=== PATIENT | female | born 1990 | race Caucasian/White ===

== ENCOUNTER 2017-01-12 04:34 | Inpatient (IN) | payer OTHER ==
[~2017-01-12] VITALS: Ht 154.9 cm; Wt 64.9 kg
[~2017-01-12 04:34] MED LIST: AMOX-366 PO; CEPH-512 PO; Docusate Sodium PO; Ibuprofen PO; Oxycodone/Acetaminophen PO; PREN1TAB78 PO; PREN1TAB87 PO; RANI-323 PO
[2017-01-12] MEDS ORDERED: Lactated Ringer's 1,000 ML IV SCH (06:31)
[2017-01-12] MEDS ORDERED: Methylergonovine 0.2 mg/mL Inj IM PRN ×2 (06:35→08:55)
[2017-01-12] MEDS ORDERED: Hemorrhage Kit, Post Partum XX ONE ×2 (06:35→08:55)
[2017-01-12] MEDS ORDERED: CeFAZolin Inj 2 GM in IV Premix 1 EACH IV ONE (06:35)
[2017-01-12] MEDS ORDERED: Carboprost 250 mCg/mL Inj IM PRN ×2 (06:35→08:55)
[2017-01-12] MEDS ORDERED: Oxytocin 10 Unit/mL Inj IM PRN ×2 (06:35→08:55)
[2017-01-12] MEDS ORDERED: Sodium Citrate-Citric Acid 15 mL Solution PO SCH (06:35)
[2017-01-12 07:14] LABS: Mean Corpuscular Hemoglobin 30.7 pg (27.0-35.0); Mean Corpuscular Volume 91.6 fL (81-100)
[2017-01-12] MEDS ORDERED: Lactated Ringer's 1,000 ML IV PRN (07:26)
--- NOTE | 2017-01-12 07:26 | PCM.HPANE ---
Patient Data Date of Service: Jan 12, 2017 Surgeon Admitting Provider:Santo Girard MD Attending Provider:Santo Girard MD Primary Care Physician:Gordo Gordillo MD Other Provider:Mandy Vale Anesthesia Reason for Visit TERM TERM Ht/WT & BMI Height (Centimeters): 156 Weight (Kilograms): 64.8 Body Mass Index 27 Allergies Coded Allergies: No Known Allergies (Unverified Allergy, Unknown, 03/14/16) Diabetes History Hx Diabetes?: No MRSA MRSA: No Medications Hypertension Medication: No Home Meds Incl Beta Ara: No Active Scripts Cephalexin (Keflex)500 Mg [id number] Mg PO TID #30 CAPSULE Prov:Marco Antonio Lay MD 08/29/16 Vit W-Ca,Fe,FA(<1 mg) ( Vitamins)1 Each Tablet1 Each PO DAILY # 90 TABLET Ref 3 Prov:Brent Oconnor MD 05/26/16 Amoxicillin/Clav K 875-125 mg (Augmentin 875-125 mg)1 Each Tablet1 Tablet PO BID #14 TABLET Ref 0 Prov:Brent Oconnor MD 03/11/16 [Oxycodone/Acetaminophen] (Percocet 5-325)1 TAB TABLET No Conflict Check1-2 Tab PO Q4H PRN For Pain #30 TABLET Ref 0 Prov:Santo Girard MD 01/17/15 [Ibuprofen] (Motrin)800 MG TABLET No Conflict [id number] Mg PO Q6H PRN For Pain # 30 TABLET Ref 1 Prov:Santo Girard MD 01/17/15 [Docusate Sodium] (Colace)100 MG CAPSULE No Conflict [id number] Mg PO BID #60 CAPSULE Ref 2 Prov:Santo Girard MD 01/17/15 Reported Medications Vits W-Ca,Fe,FA(<1Mg) ( Formula)1 Each Tablet1 Each PO DAILY 01/15/15 Ranitidine HCl (Acid Metallurgical Engineering Teacher 150)150 Mg [id number] Mg PO PRN PRN For Indigestion 01/15/15 History History of ENT Problems?: No HEENT History: Positive for:: Sinus Problem Hx of Heart Problems?: No Cardiovascular History: Denies:: Congestive Heart Failure Hypertension Hx of Respiratory Problem?: Yes Respiratory History: Positive for:: Asthma Denies:: Tuberculosis Hx of GI Problems?: No Hx of Problems?: No Female Hx: Positive for:: Currently (previous c/s) Hx Musculoskeletal Problems?: No Hx of Psycho/Social Problems?: No Hx Surgeries?: No (c-sect) Hx Diabetes: No Hx Alcohol Use: NoHx Substance Use: No Smoking Status: Former Smoker Stop/Bang Treated for Sleep Apnea?: No Do You Have a CPAP Machine?: No IRINA Risk Assessment: Low Risk, <3 Yes Risk Assessment Category Category 1A: Patient has history of documented sleep apnea, and HAS NOT received any narcotic, sedative or anesthesia administration during this stay. Category 1B: Patient has history of documented sleep apnea, and HAS received any narcotic , sedative or anesthesia administration during this stay Category 2: Patient has SUSPECTED Obstructive Sleep Apnea, and HAS received any narcotic , sedative or anesthesia administration during this stay. Category 3: Patient has SUSPECTED Obstructive Sleep Apnea and HAS NOT received narcotic, sedative or anesthesia administration during this stay. Category 4: Outpatient in Procedural Areas with known sleep apnea or who screen positive for High Risk via the STOP/BANG questionnaire. Exam Exam General Appearance: Alert, Oriented X3, Cooperative HEENT/AIRWAY: MP 2, Neck Movement (Full), Mouth Opening (Wide) Lungs: Clear to Auscultation, Normal Air Movement Heart: Regular Rate/Rhythm, Normal S1, Normal S2 Meds/Labs/Diagnostics Admission Meds Current Medications Lactated Ringer's (Lr) 1,000 ml @ 125 mls/hr Q8H IV Last administered on t 07:17; Start 01/12/17 at 06:31; Stop 01/12/17 at 14:30 Labs Test 01/12/17 06:35 White Blood Count 11.5th/mm3 (3.8-10.1) Red Blood Count 4.07mil/mm3 (3.90-5.20) Hemoglobin 12.5g/dL (12.0-15.6) Hematocrit 37.3% (35.0-46.0) Mean Corpuscular Volume 91.6fL (81-100) Mean Corpuscular Hemoglobin 30.7pg (27.0-35.0) Mean Corpuscular Hemoglobin Concent 33.5% (32.0-37.0) Red Cell Distribution Width 13.6% (12.3-15.4) Platelet Count 196bil/L (150-400) Plan Impression Patient chart reviewed, patient interviewed and anesthestic plan with risks, benefits, and alternatives discussed, and informed consent obtained. ASA Physical Status: ASA2 Plus Emergency (sponantanous labor, previous C/S, baby with decelerations) Anesthetic Plan: SAB Bene/Risks/Altern/Consents: Yes HP Complete Prior to Induction: Yes Harrison Harmon MD Jan 12, 2017 07:26
[2017-01-12] MEDS ORDERED: MetoCLOpramide 5 mg/mL 2 mL Inj IVPUSH PRN (07:30)
[2017-01-12] MEDS ORDERED: Ondansetron 2 mg/mL 2 mL Inj IVPUSH PRN (07:30)
[2017-01-12] MEDS ORDERED: EPHEDrine Sulfate 50 mg/mL Inj IVPUSH PRN (07:30)
[2017-01-12] MEDS ORDERED: Dexamethasone 4 mg/mL Inj IVPUSH PRN (07:30)
[2017-01-12] MEDS ORDERED: Atropine 0.4 mg/mL Inj IV PRN (07:30)
[2017-01-12] MEDS ORDERED: fentaNYL-PF 50 mCg/mL 2 mL Inj IVPUSH PRN (07:30)
[2017-01-12] MEDS ORDERED: Acetaminophen IV 1,000 MG in IV Premix 1 EACH IV PRN (08:55)
[2017-01-12] MEDS ORDERED: hydrOXYzine Pamoate 25 mg Capsule PO PRN (08:55)
[2017-01-12] MEDS ORDERED: Oxytocin 30 Units/500 mL LR 30 UNITS in IV Premix 1 EACH IV PRN (08:55)
[2017-01-12] MEDS ORDERED: diphenhydrAMINE 50 mg Capsule PO PRN (08:55)
[2017-01-12] MEDS ORDERED: LANOlin HPA 7 Gm Ointment TOPICAL PRN (08:55)
[2017-01-12] MEDS ORDERED: Sodium Chloride LOK Flush 10 mL Syringe IVFLUSH PRN (08:55)
--- NOTE | 2017-01-12 09:05 | PCM.ANEP1 ---
Post Anesthesia Phase 1 PACU Phase 1 Assessment Date of Service: Jan 12, 2017 Vital Signs PACU 98% RA, HR 77, RR 15, BP 124/58, T 36.1 Anesthetic Administered: SAB Level of Alertness: Awake, talking MIRANDA's with Equal Strength: No Pain: No Nausea or Vomiting: No Oxygen Delivery: Room Air Lungs: Normal Air Movement Dermatome Level: T6 (Xyphoid Process) Harrison Harmon MD Jan 12, 2017 09:05
[2017-01-12] MEDS: Lactated Ringer's 1,000 ML IV SCH ×3 (09:35→17:57)
[2017-01-12] MEDS: HYDROcodone-APAP 5-325 mg Tablet PO PRN ×3 (13:51→22:05)
[2017-01-12] MEDS: CeFAZolin Inj 1 GM in IV Premix 1 EACH IV SCH (16:30)
--- NOTE | 2017-01-12 16:30 | PCM.ANEP2 ---
Post Anesthesia Evaluation ASA/CMS Post Anesthesia Date of Service: Jan 12, 2017 VS in Patient's Normal Range?: Yes Resp Stable; Airway Patent?: Yes CV Function & Hydration Stable: Yes Mental Status Recovered?: Yes Pain control Satisfactory?: Yes N/V Control Satisfactory?: Yes Harrison Harmon MD Jan 12, 2017 16:30
[2017-01-12] MEDS ORDERED: Phenylephrine 10,000 mCg/mL Inj ONE (16:50)
[2017-01-12] MEDS ORDERED: Morphine PF 1 mg/mL 10 mL Inj ONE (16:50)
[2017-01-12] MEDS ORDERED: Oxytocin 10 Unit/mL Inj ONE (16:50)
[2017-01-12] MEDS ORDERED: fentaNYL-PF 50 mCg/mL 2 mL Inj ONE (16:50)
--- NOTE | 2017-01-12 23:47 | OP ---
[address] [address] OPERATIVE REPORT PATIENT: PAZ PLAZA : 1990 MR#: [id number] ADMIT: 01/12/2017 JOB ID: [id number] DATE OF SURGERY: 01/12/2017 PREOPERATIVE DIAGNOSIS(ES): 1. Multiparous female with history of prior section x1. 2. Labor. 3. Prolonged variable decelerations. POSTOPERATIVE DIAGNOSIS(ES): 1. Multiparous female with history of prior section x1. 2. Labor. 3. Prolonged variable decelerations. SURGERY: Primary repeat low transverse section via Pfannenstiel incision. SURGEON: Dr. Santo Girard. FORM SETTER [employer] FORMS: Dr. Allyn Bustillos. ANESTHESIA: Spinal. INDICATION: The patient had been previously consented for delivery, but the day prior to her arrival on Labor and Delivery, she had decided that she wanted to be scheduled for a . This had not been scheduled at the time she came in the early learning teacher hours of January 12, 2017. She was dennis every 5 minutes and rating them a 6/10 pain. She reconfirmed that she did not want to do a delivery. For this reason, the was scheduled for a little bit later in the morning. On the other hand, the patient then had a deep variable deceleration and this was prolonged enough to warrant going more immediately to . The immediate help of Dr. Allyn Bustillos was required for this procedure to help with visualization of the operative field and immediate post delivery management of this . I asked her to assist me on this case. FINDINGS: 1. Vigorous infant female with Apgars of 9 and 9 in an occiput posterior presentation. 2. Very thin uterus. 3. Minimal scar tissue. 4. Otherwise normal uterus, tubes, and ovaries. ESTIMATED BLOOD LOSS: 700 cc. INTRAVENOUS FLUIDS IN: 2200 mL of lactated Ringer's. URINE OUTPUT: 200 cc of clear urine at the end of the procedure. PATHOLOGY: None sent. DETAILS OF PROCEDURE: Once it was confirmed that the patient was in labor and that she had not had anything to eat in the prior 8 hours, the patient was taken back to the OR where she was given 2 g of Ancef prior to the procedure. Spinal anesthesia was performed and a procedural time-out was done. The patient was checked for adequacy of anesthesia, and this was found to be adequate. Her prior scar was used as the starting point for this and a 15 blade was used to enter the skin. The patient did not have much subcutaneous tissue and so most of this could be dealt with with digital dissection. The fascia was incised in midline and this incision was carried laterally in each direction using Ahmadi scissors. The fascia was elevated superiorly and inferiorly with Ashley clamps. Once this had been done, the underlying muscle was dissected off in the usual fashion using Ahmadi scissors. The underlying muscle was entered superiorly using a hemostat. This entry point was extended through the peritoneum and superiorly and inferiorly by stretching. Once this had been done, the bladder blade was inserted and a bladder flap was attempted to be made, but this was not particularly successful given the scar tissue of the peritoneal layer. It was noted that the uterus was dextrorotated. It was also noted that it was very thin over the area just superior to the bladder reflection where I was planning to enter anyway. There was not much amniotic fluid underneath the incision site, and so I very carefully dissected the outer wall of the uterus and proceeded to enter the uterus with my finger. The amniotic sac was then ruptured and the uterine incision was extended laterally in each direction using the bandage scissors. Once I had done this, it was noted that the infant was occiput posterior and yet no damage to the underlying structures was noted. The head and shoulders and the rest of the delivered without incident. The cord was clamped and cut and the was handed to the waiting respiratory therapist. Cord blood was sent for analysis. Once this had been done, the placenta was manually extracted. The uterus was then exteriorized and cleared of all clots and debris. There were no membranes left after I had manually swept the uterus. The internal os was dilated with a ring forceps and then this forceps was wasted from the surgical field. The uterine incision was marked with Allis clamps and then the uterine incision was closed using 1-0 chromic in a running, locked fashion. A second imbricating layer was done on most of that incision but she was still bleeding and so four or five [id number] sutures using 1-0 chromic were placed superiorly and just a bit to the right on the uterine incision. This eventually stopped the bleeding quite well. Once hemostasis was achieved, pelvic irrigation was performed. The uterus was replaced back into the pelvis and reexamined for bleeding. None was found. Interceed was added to prevent additional scarring in the future and to help with any additional bleeding. At this point, it should be noted that I quickly turned my head and my glasses fell from my face to the right of the operating field and the surgery stopped. The glasses were removed from the field using a ring forceps and the ring forceps was wasted from the surgical field. Everything was adequately counted and then a 2nd drape was placed. The suture that we were using was cut at the hilt and wasted from the surgical field. We then proceeded with the surgery as I did not need my glasses to finish this section of the surgery. The abdominal muscle was closed using 2-0 chromic in a running fashion. We then closed the fascia using 0 Vicryl in a running fashion. The subcutaneous tissue was irrigated, and the skin was closed using cameron. A standard dressing was applied. Counts were correct x3. The patient was in excellent condition following the procedure. The patient was taken back to her preoperative room. HAKAN
[2017-01-13] MEDS: CeFAZolin Inj 1 GM in IV Premix 1 EACH IV SCH ×3 (00:56→17:30)
[2017-01-13] MEDS: HYDROcodone-APAP 5-325 mg Tablet PO PRN (02:20)
[2017-01-13 06:59] LABS: Mean Corpuscular Hemoglobin 30.8 pg (27.0-35.0); Mean Corpuscular Volume 93.4 fL (81-100)
[2017-01-13] MEDS: oxyCODONE-Acetamin 5-325 mg Tablet PO PRN ×3 (07:53→16:22)
[2017-01-13] MEDS: Lactated Ringer's 1,000 ML IV SCH ×2 (08:54→16:54)
--- NOTE | 2017-01-13 12:19 | PCM.PNOBPP ---
Subjective Date of Service Jan 13, 2017 Post : Repeat Ceserean Delivery Lochia: Normal Pain Management: Good Pain Control Gastrointestinal: Good Appetite, No N/V Labs Laboratory Tests 01/13/17 06:49: White Blood Count 12.3, Red Blood Count 3.93, Hemoglobin 12.1, Hematocrit 36.7, Mean Corpuscular Volume 93.4, Mean Corpuscular Hemoglobin 30.8, Mean Corpuscular Hemoglobin Concent 33.0, Red Cell Distribution Width 14.1, Platelet Count 170 Exam Vital Signs Vital Signs: VS reviewed, stable Exam Extremities: No cords Lungs: Clear to Auscultation General: Alert, Oriented X3 Surgical Wound : Incision General Appearence: [place], No Erythemia, No Discharge Dressing & Drainage Status: Dressing Removed OB Post Assessment/Plan Problems: (1) Status post repeat low transverse section Status: Acute ICD Code: Z98.89 Pain Evaluation: Adequate Pain Control Post plan: Continue routine post care, Discharge home tomorrow Santo Girard MD Jan 13, 2017 12:19
[2017-01-14] MEDS: Lactated Ringer's 1,000 ML IV SCH (00:54)
[2017-01-14] MEDS: CeFAZolin Inj 1 GM in IV Premix 1 EACH IV SCH ×2 (01:31→09:54)
[2017-01-14] MEDS: oxyCODONE-Acetamin 5-325 mg Tablet PO PRN ×3 (01:32→14:42)
--- NOTE | 2017-01-14 13:31 | PCM.DC.OB ---
Obstetrical Discharge Summary Date of Service Jan 14, 2017 Date of hospital admission Jan 12, 2017 at 05:30 Date of Discharge: Jan 14, 2017 Providers Admitting Physician: All Girard MD Primary Care Physician: Gordo Gordillo MD Attending Physician: All Girard MD Problems: (1) Status post repeat low transverse section Status: Acute ICD Code: Z98.89 Consultations None Invasive procedures Repeat LTCS Date of Procedure: Jan 12, 2017 Hospital Course: Patient presented in labor and got a repeat c/s. Recovered in excellent fashion. ([Docusate Sodium]) 100 MG CAPSULE 100 MG PO BID Prescribed by: ALL GIRARD MD ([Ibuprofen]) 800 MG TABLET 800 MG PO Q6H PRN PRN For Pain Prescribed by: ALL GIRARD MD ([Oxycodone/Acetaminophen]) 1 TAB TABLET 1-2 TAB PO Q4H PRN PRN For Pain Prescribed by: ALL GIRARD MD Amoxicillin/Clav K 875-125 mg (Augmentin 875-125 mg) 1 Each Tablet 1 TABLET PO BID Prescribed by: LUIS DIXON MD Cephalexin (Keflex) 500 Mg Capsule 500 MG PO TID Prescribed by: APRIL LAY MD Vit W-Ca,Fe,FA(<1 mg) ( Vitamins) 1 Each Tablet 1 EACH PO DAILY Prescribed by: LUIS DIXON MD Vits W-Ca,Fe,FA(<1Mg) ( Formula) 1 Each Tablet 1 EACH PO DAILY (Reported) Ranitidine HCl (Acid Television Receiver Analyzer 150) 150 Mg Tablet 150 MG PO PRN PRN PRN For Indigestion (Reported) Follow-up plan See me in two weeks Discharge Diet: No restrictions Discharge Activity-General: Pelvic Rest for 6 weeks, Balance rest and activity , Activity as pain allows, Activity as energy allows, No lifting >15 pounds for 2 weeks copies to: Gordo Gordillo MD, David B MD Jan 14, 2017 13:31
--- NOTE | 2017-01-14 13:33 | PCM.DIOB ---
Obstetrical Disch Instruction Date of Service: Jan 14, 2017 Dates of Hospitalization Date of Hospital Admission Jan 12, 2017 at 05:30 Providers Admitting Physician: Santo Girard MD Primary Care Physician: Gordo Gordillo MD Attending Physician: Santo Girard MD Discharge Diagnosis Problems: (1) Status post repeat low transverse section Status: Acute ICD Code: Z98.89 Diet Discharge Diet: No restrictions Activity Discharge Activity-General: Pelvic Rest for 6 weeks Dressing and Incisional Care Dressing Care: Allow Steri Stripes to fall off Hygiene: May shower Follow Up Plan Follow-up Provider (F9): Santo Girard MD Follow-up appointment: Weeks (2) Call your provider for: Fever or Chills, Shortness of breath, Heavy vaginal bleeding, Excessive constipation, Red painful breasts Santo Girard MD Jan 14, 2017 13:33
[2017-01-14] MEDS ORDERED: OXYC1TAB24 PO (13:35)
[2017-01-14] MEDS ORDERED: IBUP800T28 PO (13:35)
[2017-01-14] MEDS ORDERED: DOCU-41 PO (13:35)
[2017-01-14 16:23] VITALS: BP 118/65; PULSE 80; RESP 16
== END 2017-01-14 16:51 | disposition home or self-care (01) | DRG 540 ==
LOC: FBCO 04:34 → FBC 05:30
PROVIDERS: ADMIT Family Medicine; ATTEND Family Medicine
PROC: 10D00Z1 Extraction of Products of Conception, Low, Open Approach (ICD-10-PCS; principal; 2017-01-12 07:36)
DX: O76 Abnormality in fetal heart rate and rhythm complicating labor and delivery (principal); O34.211 Maternal care for low transverse scar from previous cesarean delivery; Z3A.39 39 weeks gestation of pregnancy; Z37.0 Single live birth

== ENCOUNTER 2017-04-01 23:43 | Emergency (ER) | payer OTHER ==
[~2017-04-01] VITALS: Ht 154.9 cm; Wt 52.3 kg
[~2017-04-01 23:43] MED LIST changes: +DOCU-41 PO; +IBUP800T28 PO; +OXYC1TAB24 PO
[2017-04-01 23:51] VITALS: BP 124/83; PULSE 82; RESP 21; O2SAT 97
--- NOTE | 2017-04-02 00:52 | ED.REPORT ---
HPI-General Illness Date of Service Apr 02, 2017 ED Provider: Lalo Graham MD Pt is a 27 year old female who is 2 months post with a hx of asthma and chronic constipation presenting to the ED complaining of hemorrhoids that are worsening despite home treatments. She reports that it is now getting more uncomfortable and difficult to walk. She has been using preparation H ointment and hot baths at home. She denies any other symptoms at this time. Nursing Notes Stated Complaint: HEMORRHOID PROBLEMS Chief Complaint: General Complaint Nursing Notes Reviewed: Yes Allergies: Coded Allergies: No Known Allergies (Unverified Allergy, Unknown, 04/01/17) Scheduled ([Docusate Sodium]) 100 MG CAPSULE 100 MG PO BID Amoxicillin/Clav K 875-125 mg (Augmentin 875-125 mg) 1 Each Tablet 1 TABLET PO BID Cephalexin (Keflex) 500 Mg Capsule 500 MG PO TID Docusate Calcium (Stool Softener) 240 Mg Capsule 240 MG PO BID Docusate Sodium (Colace) 100 Mg Capsule 100 MG PO BID Hydrocortisone Acetate (Anusol-Hc) 25 Mg Supp.rect 25 MG RC DAILY Vit W-Ca,Fe,FA(<1 mg) ( Vitamins) 1 Each Tablet 1 EACH PO DAILY Vits W-Ca,Fe,FA(<1Mg) ( Formula) 1 Each Tablet 1 EACH PO DAILY Scheduled PRN ([Ibuprofen]) 800 MG TABLET 800 MG PO Q6H PRN PRN For Pain ([Oxycodone/Acetaminophen]) 1 TAB TABLET 1-2 TAB PO Q4H PRN PRN For Pain Ibuprofen (Ibuprofen) 800 Mg Tablet 800 MG PO Q6H PRN PRN For Pain Psyllium Husk (Metamucil) 3.4 Gram/5.4 Gram Powder 660 GM PO DAILY PRN PRN For Constipation Ranitidine HCl (Acid Machine Egg Washer 150) 150 Mg Tablet 150 MG PO PRN PRN PRN For Indigestion oxyCODONE-Acetaminophen 5-325 mg (oxyCODONE-Acetaminophen 5-325 mg) 1 Each Tablet 1-2 TAB PO Q4H PRN PRN For Pain General Time Seen by : 00:48 Chief Complaint Other (Hemorrhoids) Hx Obtained From: Patient Arrived By: Walk-in Sudden in Onset?: No Onset Occurred: Onset unknown Symptom Duration: Since onset Quality: Painful Severity: Current: Severe Severity: Maximum: Severe Recent Healthcare: No recent doctor visit, No recent hospitalization Similar Sx Previous: Yes Past Medical History Past Medical History Notes: , miscarriage 02/2016 RH positive Past Medical History Chronic constipation Reports: Depression Past Surgical History with second Smoking History Former Smoker Social History Alcohol Use: Denies alcohol use Drug Use: Denies drug use Other Social History: Good social support Ambulatory Status Independent Review of Systems Rectal pain Full Review of Systems Constitutional: Denies: Weakness - generalized Respiratory: Denies: Shortness of breath GI: Denies: Abdominal pain Complete sys rev & neg: except as marked. Physical Exam Vital Signs Vital Signs Date Time Temp Pulse Resp B/P Pulse Ox O2 Delivery O2 Flow Rate FiO2 04/02/17 01:43 103 16 126/ 98 Room Air 04/01/17 23:51 36.1 82 21 124/83 97 Room Air Initial VS: Reviewed General/Constitutional: Well-developed, Well-nourished Head / Eyes: Atraumatic, Normocephalic, PERRL ENT: Mucous membranes moist, Conjunctiva normal, No scleral icterus Neck: Supple, Non-tender, Full range of motion Respiratory: Breath sounds normal, Clear to auscultation, No respiratory distress Cardiovascular: Regular rate & rhythm, Heart sounds normal, Intact distal pulses Abdomen / GI: Soft, Non-tender, No guarding, No rebound, No distention Extremities: Vascular intact, Neuro intact, No swelling, No tenderness Skin: Warm, Dry, No cyanosis Neurologic: Alert, Oriented, Nonfocal Psychiatric: Mood/affect normal, Behavior normal, Normal thought content Rectum / Perineum: No gross blood 3 active hemorrhoids non thrombosed, prolapsing. No blood. No erosion of mucosal surface, no complications. Re-Eval/Medical Decision Med Decision/Clinical Course Uncomplicated hemorrhoids without bleeding or thrombosis. Given recommendations for maximizing hemorrhoid treatment and constipation treatment. Time of Eval: 01:00 Patient Status: Condition improved Re-Evaluation/Progress Note: Discussed plan for discharge. Pt understands and agrees with plan. Counseled Regarding: Diagnosis, Lab results, Need for follow-up, When/why to return to ED Discharge & Departure Primary Impression: Hemorrhoid prolapse Disposition: Home Discharge Condition All VS Reviewed: Yes Condition: Improved Patient Instructions: Constipation (ED), Hemorrhoids (ED), High Fiber Diet (ED) Additional Instructions: Spend as little time as possible on the toilet, and avoid pushing while trying to have a bowel movement. Continue the Preparation H cream and the moist wipes instead of toilet paper. Anusol HC suppository, one rectally daily #12 prescribed. MiraLAX, Metamucil, and stool softeners for the constipation. Referrals: Gordo Gordillo MD (PCP) Scribe Attestation Portions of this note were transcribed by Opal Eden. I, Dr. Graham personally performed the history, physical exam and medical decision-making; I reviewed and confirmed the accuracy of the information in the transcribed note. Signed by: Ciarra Ceja, 04/02/2017 and 0130. copies to: Gordo Gordillo MD, Howard L MD Apr 02, 2017 00:52 OPAL EDEN Apr 02, 2017 00:58
[2017-04-02] MEDS ORDERED: Phenylephrine 0.25% Rectal Suppository RECTAL ONE (01:05)
[2017-04-02] MEDS ORDERED: HYDR25SU31 RC (01:10)
[2017-04-02] MEDS ORDERED: DOCU240C41 PO (01:13)
[2017-04-02] MEDS ORDERED: PSYL660P17 PO (01:13)
[2017-04-02 01:43] VITALS: BP_SYST 126; PULSE 103; RESP 16; O2SAT 98
== END 2017-04-02 01:44 | disposition home or self-care (01) ==
LOC: SED 23:46
DX: K64.8 Other hemorrhoids (principal); J45.909 Unspecified asthma, uncomplicated; F32.9 Major depressive disorder, single episode, unspecified; Z87.891 Personal history of nicotine dependence